=== PATIENT | male | born 1975 | race Two or more races ===

== ENCOUNTER 2016-10-10 13:55 | Emergency (ER) | payer OTHER ==
[2016-10-10 14:31] VITALS: BP 127/87
[2016-10-10] MEDS ORDERED: Fluorescein Sodium TOPICAL* 1 MG TEST ONE (14:37)
[2016-10-10] MEDS ORDERED: Tetracaine 0.5% OPTH.SOL 15ML* BTL ONE (14:38)
[2016-10-10] MEDS ORDERED: BSS OPTH.SOL* BTL ONE (14:38)
--- NOTE | 2016-10-10 15:55 | UC ---
Eye Complaint HPI - HPI Summary HPI Summary: TWO DAYS OF RIGHT UPPER EYELID SWELLING, REDENSS AND TENDERNESS. NO CHANGES IN VISION. NO COLD SYMPTOMS. - History of Current Complaint Chief Complaint: UCEye Stated Complaint: EYE IRRITATION Time Seen by Provider: 10/10/16 14:36 Hx Obtained From: Patient Onset/Duration: Gradual Onset, Lasting Days, Still Present, Worse Since - TODAY Timing: Days Severity Initially: Mild Severity Currently: Mild Pain Intensity: 0 Pain Scale Used: 0-10 Numeric Location of Injury: Eye Lid (upper) Character: Dull Aggravating Factor(s): Nothing Alleviating Factor(s): Nothing Associated Signs And Symptoms: Positive: Swelling - RIGHT EYELID - Risk Factors Penetrating Injury Risk Factor: Negative Globe Rupture Risk Factors: Negative Acute Glaucoma Risk Factors: Negative Optic Artery Occlusion Risk Factors: Negative - Allergies/Home Medications Allergies/Adverse Reactions: Allergies Allergy/AdvReac Type Severity Reaction Status Date / Time Amoxicillin [From Augmentin] Allergy Unknown Verified 02/06/16 21:51 Reaction Details Clavulanic Acid Allergy Unknown Verified 02/06/16 21:51 [From Augmentin] Reaction Details PMH/Surg Hx/FS Hx/Imm Hx Previously Healthy: Yes Endocrine History Of: Denies: Diabetes, Thyroid Disease Cardiovascular History Of: Denies: Cardiac Disorders, Hypertension Respiratory History Of: Denies: COPD, Asthma GI/ History Of: Reports: Kidney Stones Denies: Ulcer, Renal Disease Neurological History Of: Reports: Migraine - Surgical History Surgical History: None - Family History Known Family History: Positive: None Negative: Respiratory Disease Family History: R & n/C - Social History 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[employer] Lives: With Family Alcohol Use: None Substance Use Type: None Smoking Status (MU): Never Smoked Tobacco Review of Systems Constitutional: Negative Skin: Negative Eyes: Other - RIGHT SUPERIOR EYELID SWELLING PAIN REDNESS ENT: Negative Respiratory: Negative Cardiovascular: Negative Gastrointestinal: Negative Genitourinary: Negative Motor: Negative Neurovascular: Negative Musculoskeletal: Negative Neurological: Negative Psychological: Negative All Other Systems Reviewed And Are Negative: Yes Physical Exam Triage Information Reviewed: Yes Appearance: Well-Appearing, No Pain Distress, Well-Nourished Vital Signs: Initial Vital Signs Temp 97.5 F 10/10/16 14:28 Pulse 89 10/10/16 14:28 Resp 14 10/10/16 14:28 BP 127/87 10/10/16 14:28 Pulse Ox 95 10/10/16 14:28 Vital Signs Reviewed: Yes Eyes: Positive: Conjunctiva Clear, Other: - ERRETHEMA EDEMA RIGHT SUPERIOR EYELID. NO PAIN WITH EYE MOVEMENT. ENT Exam: Normal ENT: Positive: Normal ENT inspection, Hearing grossly normal, TMs normal Dental Exam: Normal Neck exam: Normal Neck: Positive: Supple, Nontender, No Lymphadenopathy Respiratory Exam: Normal Respiratory: Positive: Chest non-tender, Lungs clear, Normal breath sounds, No respiratory distress Cardiovascular Exam: Normal Cardiovascular: Positive: RRR, No Murmur, Pulses Normal Abdominal Exam: Normal Abdomen Description: Positive: Nontender, No Organomegaly Musculoskeletal Exam: Normal Neurological Exam: Normal Psychological Exam: Normal Skin Exam: Normal Eye Complaint Course/Dx - Differential Dx/Diagnosis Differential Diagnosis/HQI/PQRI: Conjunctivitis Provider Diagnoses: RIGHT SUPERIOR EYELID STYE Discharge - Discharge Plan Condition: Stable Disposition: HOME Prescriptions: Clindamycin Cap(NF) [Cleocin 300 mg Cap(NF)] 300 mg PO TID #15 cap Polymyx/Trimethoprim OPTH* [Polytrim OPHTH*] 1 drop RIGHT EYE Q6HR #1 btl Patient Education Materials: Stye (ED) Referrals: [facility] [Outside]
== END 2016-10-10 15:36 | disposition home or self-care (01) ==
LOC: UCEAST 13:55
DX: H00.011 Hordeolum externum right upper eyelid (principal); Z88.1 Allergy status to other antibiotic agents; Z88.0 Allergy status to penicillin
CPT/HCPCS: 99211; 99212; A9270-GY; G0463

== ENCOUNTER 2017-05-06 14:04 | Emergency (ER) | payer OTHER ==
[2017-05-06 14:34] VITALS: BP 138/94
--- NOTE | 2017-05-06 14:42 | UC ---
Respiratory Complaint HPI - HPI Summary HPI Summary: 41 YEAR OLD MALE PRESENTS WITH COMPLAINS OF FEVER, COUGH - History of Current Complaint Chief Complaint: UCRespiratory Stated Complaint: RESP ISSUE COUGH Time Seen by Provider: 05/06/17 14:41 Hx Obtained From: Patient Onset/Duration: Sudden Onset Severity Initially: Moderate Severity Currently: Moderate Pain Scale Used: 0-10 Numeric - 5 Aggravating Factors: Exertion, Deep Breaths Alleviating Factors: Upright Position Associated Signs And Symptoms: Positive: Wheezing, Nasal Congestion, Sinus Discomfort - Allergies/Home Medications Allergies/Adverse Reactions: Allergies Allergy/AdvReac Type Severity Reaction Status Date / Time Amoxicillin [From Augmentin] Allergy Unknown Verified 05/06/17 14:28 Reaction Details Clavulanic Acid Allergy Unknown Verified 05/06/17 14:28 [From Augmentin] Reaction Details Home Medications: Home Medications Acetaminophen TAB* [Tylenol TAB*] 05/06/17 [History] Dextromethorphan-Phenylephrine [Day Time Multi-Symptom Co 10-5-325 mg] [History Confirmed 05/06/17] Sielgpoxaqryh-Qdshslaijo-Sddcb [Nyquil Severe Cold/Flu 5-6.25-10-325 mg/15Ml] 05/06/17 [History] SUMAtriptan TAB* [Imitrex TAB*] 05/06/17 [History] PMH/Surg Hx/FS Hx/Imm Hx Previously Healthy: Yes - Surgical History Surgical History: Yes Surgery Procedure, Year, and Place: hernia repair - Family History Known Family History: Positive: None Negative: Respiratory Disease Family History: R & n/C - Social History Alcohol Use: None Substance Use Type: None Smoking Status (MU): Never Smoked Tobacco Review of Systems Constitutional: Negative Skin: Negative Eyes: Negative ENT: Sore Throat, Sinus Congestion, Sinus Pain/Tenderness Respiratory: Cough Cardiovascular: Negative Gastrointestinal: Negative Genitourinary: Negative Motor: Negative Neurovascular: Negative Musculoskeletal: Negative Neurological: Negative Psychological: Negative All Other Systems Reviewed And Are Negative: Yes Physical Exam Triage Information Reviewed: Yes Vital Signs: Initial Vital Signs Temp 37.1 C 05/06/17 14:32 Pulse 93 05/06/17 14:32 Resp 16 05/06/17 14:32 BP 138/94 05/06/17 14:32 Pulse Ox 98 05/06/17 14:32 Eye Exam: Normal ENT Exam: Normal ENT: Positive: Nasal congestion, Nasal drainage Dental Exam: Normal Neck exam: Normal Neck: Positive: 1 Respiratory Exam: Normal Respiratory: Positive: Rhonchi, Wheezing Cardiovascular Exam: Normal Abdominal Exam: Normal Musculoskeletal Exam: Normal Neurological Exam: Normal Psychological Exam: Normal Skin Exam: Normal UC Diagnostic Evaluation - Laboratory O2 Sat by Pulse Oximetry: 98 Respiratory Course/Dx - Differential Dx/Diagnosis Provider Diagnoses: COUGH. NASAL CONGESTION. PHARYNGITIS Discharge - Discharge Plan Condition: Stable Disposition: HOME Prescriptions: Azithromyxin SHAMA (NF) [Z-Shama (Zithromax) 250 mg tabs #6] 2 tab PO .TODAY, THEN 1 DAILY #6 tab LoraTADine TAB(NF) [Claritin 10 MG TAB(NF)] 10 mg PO DAILY #30 tab guaiFENesin/CODIEN 100MG-10MG* [Robitussin AC 100Mg-10Mg*] 5 ml PO Q6H PRN #120 ml MDD 20 ML PRN Reason: Cough Patient Education Materials: Acute Bronchitis (ED) Forms: *Work Release Referrals: No Primary Care Phys,NOPCP [Primary Care Provider] -
== END 2017-05-06 16:00 | disposition home or self-care (01) ==
LOC: UCEAST 14:04
DX: R05 Cough (principal); R09.81 Nasal congestion; J02.9 Acute pharyngitis, unspecified; Z88.1 Allergy status to other antibiotic agents
CPT/HCPCS: 87502; 87651; 99212; G0463

== ENCOUNTER 2017-11-09 18:11 | Emergency (ER) | payer OTHER ==
[2017-11-09 19:02] VITALS: BP 126/86
[2017-11-09] MEDS ORDERED: Al Hydrox/Mg Hydrox/Simet LIQ* 30 ML UDC PO ONE (20:45)
--- NOTE | 2017-11-09 20:49 | UC ---
Abdominal Pain Male HPI - HPI Summary HPI Summary: 41 year old male with no significant pmhx here with diarrhea and chills that started yesterday. Reports symptoms started last night but acutely worsened today with several episodes of diarrhea over 2 hours. He is unable to say if its bloody since he didnt look. But he denies fever, vomiting, URI symptoms or any other complaints. - History of Current Complaint Chief Complaint: UCGeneralIllness Stated Complaint: DIARRHEA, AND CHILLS Time Seen by Provider: 11/09/17 20:34 Hx Obtained From: Patient Onset/Duration: Gradual Onset Timing: Constant Severity Initially: Mild Pain Intensity: 4 Location: Diffuse Aggravating Factor(s): Nothing Alleviating Factor(s): Nothing Associated Signs And Symptoms: Positive: Decreased Appetite, Diarrhea - Allergies/Home Medications Allergies/Adverse Reactions: Allergies Allergy/AdvReac Type Severity Reaction Status Date / Time amoxicillin Allergy Hives Verified 11/09/17 19:03 clavulanic acid Allergy Rash Verified 11/09/17 19:04 [From Augmentin] Home Medications: Home Medications Acetaminophen [Tylenol] 11/09/17 [History] PMH/Surg Hx/FS Hx/Imm Hx Previously Healthy: Yes - Surgical History Surgical History: Yes Surgery Procedure, Year, and Place: hernia repair - Family History Known Family History: Positive: None Negative: Respiratory Disease Family History: R & n/C - Social History Alcohol Use: None Substance Use Type: None Smoking Status (MU): Never Smoked Tobacco Review of Systems Constitutional: Negative Skin: Negative Eyes: Negative ENT: Negative Respiratory: Negative Cardiovascular: Negative Gastrointestinal: Negative Genitourinary: Negative Motor: Negative Neurovascular: Negative Musculoskeletal: Negative Neurological: Negative Psychological: Negative All Other Systems Reviewed And Are Negative: Yes Physical Exam Triage Information Reviewed: No Appearance: Well-Appearing, No Pain Distress Vital Signs: Initial Vital Signs Temp 37.5 C 11/09/17 18:56 Pulse 100 11/09/17 18:56 Resp 16 11/09/17 18:56 BP 126/86 11/09/17 18:56 Pulse Ox 96 11/09/17 18:56 Vital Signs Reviewed: Yes ENT: Positive: Other - dry mucosal, membranes Respiratory: Positive: Chest non-tender, Lungs clear Cardiovascular: Positive: RRR, No Murmur Abdomen Description: Positive: Nontender, No Organomegaly Bowel Sounds: Positive: Present Neurological: Positive: Alert Skin Exam: Normal Abd Pain Male Course/Dx - Differential Dx/Clinical Impression Differential Diagnosis/HQI/PQRI: Appendicitis, Diverticulitis, Pancreatitis Provider Diagnoses: Gastroenteritis. Normal exam, non-focal. Symptomatic treatment Discharge - Discharge Plan Condition: Good Disposition: HOME Prescriptions: Mag Hydrox/Aluminum Hyd/Simeth [Maalox Advanced 200-200-20 mg/5Ml] 1 clare PO Q8HR PRN 10 Days #20 clare PRN Reason: Diarrhea Patient Education Materials: Gastroenteritis (ED) Forms: *Work Release Referrals: No Primary Care Phys,NOPCP [Primary Care Provider] - Additional Instructions: Stay hydrated. You should eat bread, banana, rice or apple sauce until the diarrhea stops.
== END 2017-11-09 21:27 | disposition home or self-care (01) ==
LOC: UCEAST 18:11
DX: K52.9 Noninfective gastroenteritis and colitis, unspecified (principal)
CPT/HCPCS: 87045; 87046; 99212; A9270-GY; G0463

== ENCOUNTER 2019-10-14 19:43 | Emergency (ER) | payer OTHER ==
[2019-10-14] MEDS ORDERED: NS 0.9% 1000 ML** 1,000 ML IV ONE (19:44)
--- NOTE | 2019-10-14 19:53 | ED ---
Neurological HPI - HPI Summary HPI Summary: Sneha Burgess called from EMS transport at 19:38 with an ETA of 5 minutes. Patient arrived at 19:42. Patient seen by provider as soon as he arrived. Exam upon arrival. Pt sent directly for Brain CT and Head CTA. Telestroke consult initiated at 19:44. At 19:49, Brain CT results reported to Dr. Fernandez pt had a brain bleed. Pt not in consideration for TPA at 19:51. Telestroke canceled at 19 :51. Dr. Ortiz paged. This patient is a 43 year old M presenting to [facility] by EMS. Pt was found on the floor at 1900. 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 Pt was found lying on floor in a semi-awake/lethargic state. EMS reports pt had left sided weakness. Pt was also found with clindamycin for his teeth, and some foreign form of Tylenol. Pt complains of severe headache, and does not remember what happened. Pt has been on clindamycin for one week. Pt does not smoke, or drink alcohol and use drugs. Pt lives with sister and mother. Pt is allergic to Augmentin. No PMHx. - History of Current Complaint Chief Complaint: EDHeadache Stated Complaint: SNEHA DISLA PER EMS Time Seen by Provider: 10/14/19 19:44 Last Known Well Date: 1899 Hx Obtained From: Patient, EMS Onset/Duration: Sudden Onset, Still Present Timing: Constant Onset Severity: Worst Headache Ever Character: Motor Weakness, Worst Headache Ever Aggravating: Nothing Alleviating: Nothing Associated Signs and Symptoms: Positive: Headache TPA Considered: No - Brain Bleed - Allergy/Home Medications Allergies/Adverse Reactions: Allergies Allergy/AdvReac Type Severity Reaction Status Date / Time amoxicillin Allergy Hives Verified 10/14/19 22:12 clavulanic acid Allergy Rash Verified 10/14/19 22:12 [From Augmentin] Home Medications: Home Medications Benzonatate CAP* [Tessalon 100 MG CAP*] 200 mg PO TID 10/14/19 [History Confirmed 10/14/19] Clindamycin Cap(NF) [Clindamycin Cap 300 mg Cap(NF)] 300 mg PO TID 10/14/19 [ History Confirmed 10/14/19] Tylenol Arthritis 1 cap PO Q8HR PRN 10/14/19 [History Confirmed 10/14/19] PMH/Surg Hx/FS Hx/Imm Hx Endocrine/Hematology History: Denies: Hx Diabetes, Hx Thyroid Disease Cardiovascular History: Denies: Hx Hypertension Respiratory History: Denies: Hx Asthma, Hx Chronic Obstructive Pulmonary Disease (COPD) GI History: Denies: Hx Ulcer History: Reports: Hx Kidney Stones Denies: Hx Renal Disease Neurological History: Reports: Hx Migraine - Surgical History Surgery Procedure, Year, and Place: hernia repair Infectious Disease History: Denies: Hx Hepatitis, Hx Human Immunodeficiency Virus (HIV), History Other Infectious Disease - Family History Known Family History: Positive: None Negative: Respiratory Disease Family History: R & n/C - Social History Lives: With Family Alcohol Use: None Hx Substance Use: No Substance Use Type: Reports: None Hx Tobacco Use: No Smoking Status (MU): Never Smoked Tobacco - Additional Comments History Additional Comments: Home Medications Medication Instructions Recorded Confirmed Type Acetaminophen [Tylenol] 11/09/17 History Mag Hydrox/Aluminum Hyd/Simeth 1 clare PO Q8HR PRN 10 Days #20 clare 11/09/17 Rx [Maalox Advanced 200-200-20 mg/5Ml] Review of Systems Negative: Fever Positive: Headache, Weakness - left-sided All Other Systems Reviewed And Are Negative: Yes Physical Exam - Summary Physical Exam Summary: General: Well-developed, Well-nourished male. No acute distress. HEENT: Normocephalic, Atraumatic. Eyes: Conjuctiva normal, PERRL. Oropharynx: Clear, mucous membranes moist, (-) exudates. Neck: Soft, FROM, (-) lymphadenopathy, (-) thyromegaly, (-) JVD. Cardiovascular: Normal sinus rhythm, (-) murmur. Lungs: Clear to auscultation bilaterally (-) wheezes, (-) rales, (-) rhonchi. Abdomen: Soft, non-tender, non-distended, (-) organomegaly, normal bowel sounds. Back: (-) CVA tenderness Extremities: No edema. Skin: Warm, dry, (-) rash. Neuro: Alert and oriented x3, Left facial droop. Normal strength in lower left extremity. Some movement against gravity in left arm. Psychiatric: Mood normal, affect normal. Triage Information Reviewed: Yes Vital Signs On Initial Exam: Initial Vital Signs Pulse 67 10/14/19 19:55 BP 146/103 10/14/19 19:55 Pulse Ox 96 10/14/19 19:55 Vital Signs Reviewed: Yes Procedures - Sedation Patient Received Moderate/Deep Sedation with Procedure: No Diagnostics - Laboratory Result Diagrams: 10/14/19 19:44 10/14/19 19:44 Lab Statement: Any lab studies that have been ordered have been reviewed, and results considered in the medical decision making process. - Radiology CXR Radiology Interpretation Completed By: ED Physician Summary of Radiographic Findings: CXR per ED physician is difficult to interpret secondary to decreased inspiration. Pending official radiology report. CXR 2 Radiology Interpretation Completed By: ED Physician Summary of Radiographic Findings: CXR per ED physician is difficult to interpret secondary to decreased inspiration. Pending official radiology report. - CT Brain CT CT Interpretation Completed By: Radiologist Summary of CT Findings: Brain CT reveals, per radiologist IMPRESSION: 1. A hyperdense acute hematoma is identified is identified within the right basal ganglia measuring 3.1 x 2.5 x 2.3 cm. This can be due to a hypertensive bleed or hemorrhagic conversion of infarction, although additional hemorrhagic pathology cannot be excluded. A follow-up head CT in 12-24 hours is recommended. ED physician has reviewed this radiology report. Head CTA CT Interpretation Completed By: Radiologist Summary of CT Findings: Head CTA reveals, per radiologist. IMPRESSION: 1. No evidence of aneurysm or arteriovenous malformation. 2. Intracranial hemorrhage is similar from recent noncontrast examination. IMPRESSION: No stenosis (0%) or dissection. ED physician has reviewed this radiology report. - EKG 1958 Cardiac Rate: NL EKG Rhythm: Sinus Rhythm EKG Comparison: No Significant Change Summary of EKG Findings: EKG at 19:59 reveals normal sinus rhythm with rate of 61 BPM. No acute changes since 01/2011. No STEMI. This EKG was reviewed and interpreted by Dr. Fernandez. NIH Scale - NIH Scale Level of Consciousness: Alert/Keenly Responsive Ask Patient the Month and His/Her Age: Both Correct Ask Pt to Open/Close Eyes and Natural Resource Specialist/Release Non-Paretic Hand: Both Correctly Best Gaze (Only Horizontal Eye Movement): Normal Visual Field Testing: No Visual Loss Facial Paresis-Pt to Smile & Close Eyes or Grimace Symmetry: Minor Paralysis Motor Function - Right Arm: No Drift-Holds 10 Seconds Motor Function - Left Arm: Effort Against [place] Motor Function - Right Leg: No Drift-Holds 10 Seconds Motor Function - Left Leg: No Drift-Holds 10 Seconds Limb Ataxia-Must be out of Proportion to Weakness Present: Absent Sensory (Use Pinprick to Test Arms/Legs/Trunk/Face): Normal Best Language (Describe Picture, Name Items): Some Loss Dysarthria (Read Several Words): Normal Extinction and Inattention: No Abnormality Total Score: 4 Re-Evaluation - Re-Evaluation First Eval Re-Evaluation Time: 20:56 Comment: Discussed results and plan to transfer patient to [facility]. Second Eval Re-Evaluation Time: 21:06 Comment: Blood Pressure is 161/104. Labetalol will be given for blood pressure. Third Eval Re-Evaluation Time: 21:24 Comment: Blood pressure is 161/106 Fourth Eval Re-Evaluation Time: 21:58 Comment: Repeat Labetatol for elevated blood pressure. Pt is still very restless ; still waiting to speak with neurosurgeon for anything for pain and agitation. 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 Complaining of headache upon arrival. Patient is arousable and able to give some history. Speech is difficult to understand at times. he is following commands. Left arm weakness noted. Mild left facial droop. blood pressure extremely elevated initially. Manual repeat 140s over 90s. CT brain done immediately which demonstrated large bleed in the right basal ganglia. Neurosurgery contacted. Dr. Jacinto recommended maintaining the blood pressure in the 140s over 90s. Recommended Keppra for seizure prophylaxis. Proceed with CTA's. He then spoke with his colleague at [facility] in [place]. They agreed the patient might need the [place] procedure and should be transferred there. He spoke with Dr. Tavares. patient agreed to transfer. Transfer was initiated. Dr. Aggarwal confirmed acceptance. Transportation arranged. Helicopter flying due to weather. patient will be transported urgently to [facility]. emergency room. during his stay here patient was given iv fluids and keppra. labetalol 2 for elevated blood pressures. family was contacted per patient's request. May repeat labetalol as needed transportation for her elevated blood pressures. In ED pt received fluids, Keppra for siezure prophylaxis, and Labetalol for blood pressure - Diagnoses Provider Diagnoses: Intracranial bleeding During the Visit The Following Alert/Code Occurred: Code Burgess - Code Burgess called from EMS transport at 19:38 - Physician Notifications Discussed Care Of Patient With: Abby Ortiz Time Discussed With Above Provider: 19:54 Instructed by Provider To: Transfer - 19:54 Discussed patients case with Dr. Ortiz, who recommended blood pressure be in the range of 140s. 20:14 Dr. Ortiz recommends Keppra for seizure prophylaxis, and CTAs to further delineate whether this is an aneurism. He will discuss patients case with neurosurgery in [place] because he does not feel comfortable operating. 20:39 Dr. Ortiz has spoken with [place], Dr. Tavares has accepted the pt. 21: 18- Transfer [facility] where Dr. Tavares accepted 21:35 [facility] called about CTAs angios are unremarkable and bleed is stable. Reason For Transfer: Other: - Higher level of care - Critical Care Time Critical Care Time: 30-74 min - 168 min Discharge ED - Sign-Out/Discharge Documenting (check all that apply): Patient Departure - Transfer - Discharge Plan Condition: Stable Disposition: TRANS HIGHER LVL OF CARE FAC Referrals: No Primary Care Phys,NOPCP [Primary Care Provider] - - Billing Disposition and Condition Condition: STABLE Disposition: Trans Higher Lvl of Care Fac - Attestation Statements Document Initiated by Scribe: Yes Documenting Scribe: Jeannette Blanco Provider For Whom Scribe is Documenting (Include Credential): Dr. Lissette Fernandez MD Scribe Attestation: Jeannette Kang scribed for Dr. Lissette Fernandez MD on 10/14/19 at 2211. Scribe Documentation Reviewed: Yes Provider Attestation: The documentation as recorded by the Jeannette nelson accurately reflects the service I personally performed and the decisions made by me, Dr. Lissette Fernandez MD Status of Scribe Document: Viewed
[2019-10-14 20:15] LABS: ABS Eosinophils 0.3 10^3/ul (0-0.6); ABS Lymphocytes 1.6 10^3/ul (1.0-4.8); ABS Monocytes 0.5 10^3/ul (0-0.8); ABS Neutrophils 5.4 10^3/ul (1.5-7.7); Eosinophil % 4.4 %; Hematocrit 48 % (42-52); Lymphocyte % 19.8 %; Mean Corpuscular HGB Conc 36 g/dL (31-36); Mean Corpuscular Hemoglobin 29 pg (27-31); Mean Corpuscular Volume 81 fL (80-94); Mean Platelet Volume 8.1 fL (7.4-10.4); Nucleated Red Blood Cells % 0.1; Platelet Count 294 10^3/uL (150-450); Red Cell Distribution Width 14 % (10-15); White Blood Count 7.9 10^3/uL (3.5-10.8)
[2019-10-14] MEDS ORDERED: levETIRAcetam 1000MG IVPREMIX* 1,000 MG/100 ML BAG IVPB ONE (20:17)
[2019-10-14] MEDS ORDERED: Iodixanol* (CONTRAST) 320 MG/ML 100 ML SDV IV ONE (20:21)
[2019-10-14 20:23] LABS: Activated Partial Thrombo Time 33.4 seconds (26.0-38.0); INR 0.97 (0.82-1.09)
[2019-10-14 20:33] LABS: ALT 101 U/L (7-52); AST 46 U/L (13-39); Albumin 4.5 g/dL (3.2-5.2); Albumin/Globulin Ratio 1.3 (1-3); Alkaline Phosphatase 77 U/L (34-104); Anion Gap 7 mmol/L (2-11); BUN/Creatinine Ratio 21.7 (8-20); Blood Urea Nitrogen 18 mg/dL (6-24); CO2 Carbon Dioxide 28 mmol/L (22-32); Calcium 9.7 mg/dL (8.6-10.3); Chloride 102 mmol/L (101-111); Cholesterol 156 mg/dL; EGFR African American 122.9 (>60); EGFR Non-African American 101.6 (>60); Globulin 3.4 g/dL (2-4); Glucose 113 mg/dL (70-100); HDL Cholesterol 39.3 mg/dL; LDL Cholesterol 100 mg/dL; Potassium 3.3 mmol/L (3.5-5.0); Sodium 137 mmol/L (135-145); Total Protein 7.9 g/dL (6.4-8.9); Triglycerides 83 mg/dL
[2019-10-14 20:34] LABS: Troponin I 0.02 ng/mL (<0.03)
[2019-10-14 20:38] LABS: Alcohol < 10 mg/dL (<10)
[2019-10-14] MEDS ORDERED: Ondansetron INJ* 2 MG/ML VIAL ONE (20:44)
[2019-10-14] MEDS ORDERED: Labetalol IV* 5 MG/ML 20 ML VIAL IV PUSH ONE ×2 (21:06→21:58)
[2019-10-14 21:13] LABS: Urine Appearance Clear; Urine Bilirubin Negative (Negative); Urine Blood 1+ (Negative); Urine Color Yellow; Urine Glucose Negative (Negative); Urine Ketones Negative (Negative); Urine Nitrite Negative (Negative); Urine Protein Negative (Negative); Urine Specific Gravity 1.029 (1.010-1.030); Urine Urobilinogen Negative (Negative)
[2019-10-14 21:15] LABS: Urine Bacteria Absent (Absent); Urine Red Blood Cell Trace(0-2/hpf) (Absent); Urine White Blood Cell Trace(0-5/hpf) (Absent)
[2019-10-14 21:22] LABS: Urine Benzodiazepine Screen None Detected (None Detect); Urine Opiates Screen None Detected (None Detect)
[2019-10-14 22:37] VITALS: BP 124/88
--- NOTE | 2019-10-15 11:11 | ED ---
Imaging and Labs Follow Up Follow Up Type: Imaging Imaging Result: Patient Name: INES BUTLER Medical Record#: [id number] Ordering Physician: Lissette Fernandez MD Acct.#: [id number] : 1975 Age: 43 Sex: M Location: EMERGENCY DEPARTMENT Exam Date: 10/14/192143 ADM Status: DEP ER Order Information: CHEST AP/PORT Accession Number: [id number] CPT: 63172 INDICATION: Decreased breath sounds COMPARISON: Same day chest radiograph TECHNIQUE: A portable view of the chest was obtained. FINDINGS: Overlying leads obscure the [id number]. There is bibasilar airspace opacification. There is no pleural effusion. The cardiomediastinal silhouette is within normal limits. The upper abdominal contents are normal. Osseous structures are unremarkable. IMPRESSION: BIBASILAR AIRSPACE OPACIFICATION (INFILTRATE VERSUS ATELECTASIS). R0 Preliminary Imaging Read R0 <Electronically signed by Luís Colunga MD in [place]> 10/15/19723 Dictated By: Luís Colunga MD Dictated Date/Time: 10/15/19721 Transcribed Date/Time: 10/15/19721 Copy to: CC:Lissette Fernandez MD; No Primary Care Phys,NOPCP Imaging - [facility] - [place] [facility] [address] [place] [address] This report is only to be considered final once signed by the Provider(s) as displayed in the "<Electronically Signed by >" field (s). Absence of a signature indicates the report is in a draft status and still needs to be finalized. In the event this document was created by someone other than the signing Provider, the individual initiating the document will be listed in the "Entered by:" or "Dictated by:" lawson. 1 of 2 Patient Communication/Plan: Pt. seen for intracranial bleed and ultimately transferred for higher level of care. Provider Diagnoses: Intracranial bleeding
== END 2019-10-14 22:35 | disposition short-term general hospital (02) ==
LOC: ED 19:43
DX: I62.9 Nontraumatic intracranial hemorrhage, unspecified (principal); R53.83 Other fatigue; R51 Headache; Z88.1 Allergy status to other antibiotic agents; Z79.899 Other long term (current) drug therapy; Z87.442 Personal history of urinary calculi
CPT/HCPCS: 36415; 70450; 70496; 70498; 71045; 80053; 80061; 80307; 80320; 81003; 81015; 83605; 84484; 85025; 85610; 85730; 87086; 93005; 96361; 96365; 96375; 96376; 99285; G0480; J1953; J2405; Q9967